=== PATIENT | female | born 1965 | race Caucasian/White ===

== ENCOUNTER 2017-05-09 06:42 | Day surgery (SDC) | payer BC ==
[2017-05-05 10:00] VITALS: BMI 30.2
[2017-05-09] MEDS ORDERED: DEXAMETHASONE SOD PHOSPHATE 4 MG/1 ML VIAL ONE ×2 (07:58→08:28)
[2017-05-09] MEDS ORDERED: ONDANSETRON 4 MG/2 ML VIAL ONE ×2 (07:58→08:28)
[2017-05-09] MEDS ORDERED: MIDAZOLAM HCL 2 MG/2 ML SINGLE DOSE VIAL ONE (07:59)
[2017-05-09] MEDS ORDERED: LIDOCAINE HCL 2% (20ML MULTI-DOSE VIAL) NR ONE (08:25)
[2017-05-09] MEDS ORDERED: ceFAZolin SODIUM 1 GM VIAL ONE (08:28)
[2017-05-09] MEDS ORDERED: LIDOCAINE HCL 2% (50ML VIAL) INF ONE (08:51)
[2017-05-09] MEDS ORDERED: KETOROLAC TROMETHAMINE 30 MG/1 ML VIAL ONE (09:04)
[2017-05-09] MEDS ORDERED: oxyCODONE HCL 5 MG TABLET PO PRN (09:29)
[2017-05-09] MEDS ORDERED: ONDANSETRON 4 MG/2 ML VIAL IVPUSH PRN (09:29)
[2017-05-09] MEDS ORDERED: LACTATED RINGERS SOLUTION 1,000 ML IV SCH (09:30)
[2017-05-09 11:51] VITALS: BP 100/66; PULSE 67; TEMP 97.9
--- NOTE | 2017-05-11 19:20 | OP ---
DATE OF OPERATION: 05/09/2017 LOCATION: [facility]. SURGEON: Sandra Melgar MD MANAGER ED: ALYSHA Gamboa PREOPERATIVE DIAGNOSIS: Right wrist ganglion. POSTOPERATIVE DIAGNOSIS: Right wrist ganglion. PROCEDURE: Excision of right wrist ganglion. FINDINGS: A fluid-filled ganglion cyst on the dorsum of the wrist. PROCEDURE: Informed consent was obtained. He was taken to the operating room, where the right upper extremity was prepped and draped in a sterile fashion. Tourniquet was placed on the upper arm, inflated to 250 mmHg. A horizontal incision following the skin lines was made over the area of the cyst. The cyst was identified and the stalk was taken to the distal radioulnar joint. There was a bone spur along the dorsum of the ulna and this was debrided with a rongeur. The cyst was removed, including the stalk from the joint, and Bovie was used along the base. The wound was irrigated with copious amounts of irrigation and closed with 2-0 Vicryl and 3-0 nylon single interrupted sutures. Sterile dressing was placed and patient was transferred to the recovery room without complication. SANDRA MELGAR M.D. [id number]
--- NOTE | 2017-05-13 16:12 | PATH ---
Surgical Pathology Report Patient Name: TENZIN CHAN Med. Rec. #: [id number] /Age/Gender: 1965 (Age: 51) / F Account: [id number] Location: [facility] Taken: 05/09/2017 Received: 05/09/2017 Reported: 05/13/2017 Physicians: Scout Bray M.D. Specimen(s) Received MASS OF RIGHT WRIST Clinical History Mass of right wrist Final Diagnosis WRIST, RIGHT, MASS, EXCISION: GANGLION CYST. Electronically Signed Missy Merino M.D. Gross Description Received in formalin labeled "mass of right wrist," is a 1.5 x 1.2 x 0.3 cm spence-yellow, irregular portion of soft tissue. The specimen is submitted in toto in one cassette. 05/12/201705/12/2017
== END 2017-05-09 11:05 | disposition home or self-care (01) ==
LOC: FASU 06:42
PROVIDERS: ATTEND Orthopaedic Surgery
PROC: 0RBN0ZZ Excision of Right Wrist Joint, Open Approach (ICD-10-PCS; principal; 2017-05-09 08:34)
DX: M67.431 Ganglion, right wrist (principal)
CPT/HCPCS: 88304-TC; 94760